=== PATIENT | male | born 1955 | race Caucasian/White ===

== ENCOUNTER 2019-10-30 13:18 | Outpatient (CLI) | payer MEDICAID, SELFPAY ==
--- NOTE | 2019-10-30 13:30 | USCV_ITS ---
To Knox Age: 64 Gender: M : 1955 Exam Date: 10/30/2019 13:34 Ordering Phys: Guillermina Khalil MD ([email or web address]) Technologist: [place] [facility] [place]: Peripheral vascular disease with claudication RIGHT LEFT Brachial 159.00 mmHg Brachial 140.00 mmHg Pressure (mmHg) Waveform Pressure (mmHg) Waveform 80.00 [employer] 140.00 88.00 DPA 129.00 0.55 Ankle/Brachial Index 0.88 0.44 Post-Exercise Ankle Brachial Index 0.83 52.00 Pre-Exercise Toe Pressure 90.00 0.33 Pre-Exercise Toe/Brachial Index 0.57 FINDINGS Diminished resting ABIs bilaterally Significantly diminished post exercise SUZANNE on the right side No significant change in the post exercise SUZANNE on the left side Severely diminished resting TBI on the right side Mildly diminished resting TBI on the left side CONCLUSIONS 1. Features of severe obstructive arterial disease on the right side 2. Possibly mild peripheral artery disease on the left side Dr Luca Martin MD FAC (Electronically Signed) Final Date: 30 October 2019 18:04 S
== END 2019-10-30 13:19 | disposition home or self-care (01) ==
LOC: RAD 13:25
PROVIDERS: Visit Provider Internal Medicine Cardiovascular Disease
DX: I73.9 Peripheral vascular disease, unspecified (principal)
CPT/HCPCS: 93922

== ENCOUNTER 2019-11-17 10:06 | Outpatient (CLI) | payer MEDICAID, SELFPAY ==
--- NOTE | 2019-11-17 11:00 | CTR_ITS ---
PROCEDURE INFORMATION: Exam: CTA Angiogram of the Abdominal Aorta and Bilateral Lower Extremities (Run-off) With IV Contrast Exam date and time: 11/17/2019 10:15 AM Age: 64 years old Clinical indication: Condition or disease; Other: Periperal artery disease TECHNIQUE: Imaging protocol: CT angiogram of the abdominal aorta, pelvis and bilateral lower extremities with IV iodinated contrast. 3D rendering: MIP and/or 3D reconstructed images were created by the technologist. Total DLP: 1211.69 mGy-cm Radiation optimization: All CT scans at this facility use at least one of these dose optimization techniques: automated exposure control; mA and/or kV adjustment per patient size (includes targeted exams where dose is matched to clinical indication); or iterative reconstruction. Contrast material: VISIPAQUE; Contrast volume: 95 ml; Contrast route: IV; COMPARISON: CT abdomen pelvis wo con [id number] 02/15/2019 1:59 AM FINDINGS: Aorta: The distal thoracic aorta measures 2.8 cm unchanged since the prior exam. Moderate noncalcified plaque/thrombus is noted. Severe atherosclerotic changes are noted in the distal abdominal aorta. Just distal to the renal arteries, there is marked irregularity of the lumen with extensive plaque formation some of which may reflect ulcerated plaque image 54. There is aneurysmal dilatation of the distal abdominal aorta measuring 3.2 by 3.0 cm increased since the prior exam where it measured 2.9 x 3.0 cm. There is no dissection. Celiac trunk and mesenteric arteries: There is mild narrowing of the origin of the celiac artery. The vessel is ectatic but there is no critical stenosis. There is mild narrowing of the origin of the superior mesenteric artery but no critical stenosis. Renal arteries: Mild narrowing of the origin of both renal arteries is noted with mild calcified and soft tissue density plaque but no critical stenosis bilaterally. Right iliac arteries: There is occlusion of the origin of the right common iliac artery at the bifurcation. Reconstitution of the vessel is noted at approximately the bifurcation into the internal and external iliac arteries. Approximately 50% narrowing of the right common iliac artery is noted due to soft tissue and calcific plaque Right femoral/popliteal arteries: No occlusion or significant stenosis. Right infrapopliteal arteries: No occlusion or significant stenosis. Left iliac arteries: There is approximately 50% stenosis of the origin of the left common iliac artery due to soft tissue density and calcific plaque. This is a short segment of narrowing measuring only 3 mm series 201, image 30. Approximately 25% narrowing of the distal left common iliac artery is noted series 3, image 124 due to posterior calcific and soft tissue density plaque. Approximately 25% narrowing of the left external iliac artery is noted throughout its course due to extensive calcific and soft tissue density plaque. Left femoral/popliteal arteries: No occlusion or significant stenosis. Left infrapopliteal arteries: No occlusion or significant stenosis. Mediastinum: A small hiatal hernia is present. Liver: No mass. Gallbladder and bile ducts: Unremarkable. No calcified stones. No ductal dilation. Pancreas: Unremarkable. No mass. No ductal dilation. Spleen: Normal. No splenomegaly. Adrenals: Normal. No mass. Kidneys and ureters: Bilateral renal cortical cysts are noted. The largest is in the midpole left kidney measuring three point 9 cm in size. Just posterior to this cyst on series 3, image 45 is a 2.1 cm indeterminate lesion concerning for an enhancing/solid mass left kidney the previously measured 1.7 cm in size. This lesion has indeterminate Hounsfield unit measurements of 59 Hounsfield unit. There is no hydronephrosis or nephrolithiasis. Stomach and bowel: Moderate diverticulosis is noted. No diverticulitis. No bowel thickening or inflammatory changes. Appendix: A normal appendix is identified. Bladder: There is nonspecific bladder wall thickening. This may be related to incomplete distention. Reproductive: The prostate demonstrates moderate nonspecific enlargement. The seminal vesicles are normal. The prostate demonstrates nonspecific parenchymal calcifications. There is a penile implant with a reservoir in the right lower quadrant. Intraperitoneal space: Unremarkable. No free air. No significant fluid collection. Lymph nodes: No lymphadenopathy. Bones/joints: Multiple probable cysts are noted on the right. Many of the cortical hypodensities are too small to characterize but the largest is in the midpole left kidney measuring 1.5 cm in size. Moderate degenerative changes are noted in the spine. Soft tissues: Bilateral small fat filled inguinal hernias are noted. CT/CT angio abd aorta runof [id number] IMPRESSION: 1. Complete occlusion of the right common iliac artery at its origin with reconstitution at the origin of the internal and external iliac arteries. 2. 50% narrowing of the origin of the left common iliac artery. Approximately 50% narrowing of both external iliac arteries. 3. Enlarging distal abdominal aortic aneurysm compared to the prior exam. Marked noncalcified plaque and irregularity of the lumen of the abdominal aorta is noted concerning for ulcerated plaque. No dissection or leak. 4. Enlarging enhancing lesion midpole left kidney concerning for incidental renal cell carcinoma. Bilateral renal cysts are noted. Recommend MR without and with contrast or CT without and with contrast. MR is preferred for masses under 1.5 cm. Radiation Dose CTDIVOL = (mGy): DLP = 1211.69 (mGy-cm)
[2019-11-17 11:04] LABS: Blood Urea Nitrogen 21 mg/dL (8-23); Glomerular Filtration Rate 38.2 mL/min (90-130)
[2019-11-17] MEDS: iodixanol 320 mg/mL 100mL Btl IV (11:53)
== END 2019-11-17 10:07 | disposition home or self-care (01) ==
LOC: RAD 10:07
PROVIDERS: Visit Provider Internal Medicine Cardiovascular Disease
DX: I74.5 Embolism and thrombosis of iliac artery (principal); I71.4 Abdominal aortic aneurysm, without rupture; I73.9 Peripheral vascular disease, unspecified; N28.9 Disorder of kidney and ureter, unspecified; N28.1 Cyst of kidney, acquired
CPT/HCPCS: 36415; 75635; 82565; 84520

== ENCOUNTER → 2022-12-04 12:47 | Outpatient (BNVA) | payer MEDICARE, MEDICAID, SELFPAY | PROVIDERS: Visit Provider Internal Medicine Cardiovascular Disease | DX: I25.10 Atherosclerotic heart disease of native coronary artery without angina pectoris (principal); I11.0 Hypertensive heart disease with heart failure; I50.42 Chronic combined systolic (congestive) and diastolic (congestive) heart failure; Z95.0 Presence of cardiac pacemaker; E11.9 Type 2 diabetes mellitus without complications; Z79.84 Long term (current) use of oral hypoglycemic drugs; Z79.82 Long term (current) use of aspirin; F17.210 Nicotine dependence, cigarettes, uncomplicated | CPT/HCPCS: 93005; 93288; 99204 ==

== ENCOUNTER → 2023-06-04 13:45 | Outpatient (BNVA) | payer MEDICARE, MEDICAID, SELFPAY | PROVIDERS: Visit Provider Internal Medicine Cardiovascular Disease | DX: I25.10 Atherosclerotic heart disease of native coronary artery without angina pectoris (principal); I11.0 Hypertensive heart disease with heart failure; I50.42 Chronic combined systolic (congestive) and diastolic (congestive) heart failure; Z95.0 Presence of cardiac pacemaker; F17.210 Nicotine dependence, cigarettes, uncomplicated | CPT/HCPCS: 99214 ==

== ENCOUNTER → 2024-01-01 13:41 | Outpatient (BNVA) | payer MEDICARE, MEDICAID, SELFPAY | PROVIDERS: Visit Provider Internal Medicine Cardiovascular Disease | DX: I11.0 Hypertensive heart disease with heart failure (principal); I50.42 Chronic combined systolic (congestive) and diastolic (congestive) heart failure; I25.10 Atherosclerotic heart disease of native coronary artery without angina pectoris; Z95.0 Presence of cardiac pacemaker; E11.9 Type 2 diabetes mellitus without complications; F17.210 Nicotine dependence, cigarettes, uncomplicated; Z79.84 Long term (current) use of oral hypoglycemic drugs | CPT/HCPCS: 99214 ==

== ENCOUNTER → 2024-01-15 14:07 | Outpatient (BNVA) | payer MEDICARE, MEDICAID, SELFPAY | PROVIDERS: Visit Provider Podiatrist Foot & Ankle Surgery | DX: I73.9 Peripheral vascular disease, unspecified (principal); B35.1 Tinea unguium; E11.69 Type 2 diabetes mellitus with other specified complication | CPT/HCPCS: 11721; 99204 ==

== ENCOUNTER → 2024-02-26 14:02 | Outpatient (BNVA) | payer MEDICARE, SELFPAY | PROVIDERS: Visit Provider Podiatrist Foot & Ankle Surgery | DX: R09.89 Other specified symptoms and signs involving the circulatory and respiratory systems (principal); I73.9 Peripheral vascular disease, unspecified; B35.1 Tinea unguium; E11.9 Type 2 diabetes mellitus without complications | CPT/HCPCS: 99213 ==

== ENCOUNTER 2024-02-29 14:02 | Outpatient (CLI) | payer MEDICARE, SELFPAY ==
--- NOTE | 2024-02-29 14:30 | CTR_ITS ---
PROCEDURE INFORMATION: Exam: CTA Abdominal Aorta and Bilateral Lower Extremities (Run-off) With Contrast Exam date and time: 02/29/2024 2:50 PM Age: 69 years old Clinical indication: Discoloration or erythema and other: Toes are turning purple; Bilateral; Patient HX: Toes are turning purple, states they have been for several years. HX of hepatitis; Treatment in 1974 TECHNIQUE: Imaging protocol: Computed tomographic angiography of the of the abdominal aorta, pelvis and bilateral lower extremities with contrast. 3D rendering (Not supervised by radiologist): MIP and/or 3D reconstructed images were created by the technologist. Radiation optimization: All CT scans at this facility use at least one of these dose optimization techniques: automated exposure control; mA and/or kV adjustment per patient size (includes targeted exams where dose is matched to clinical indication); or iterative reconstruction. Contrast material: OMNI 350; Contrast volume: 95 ml; Contrast route: INTRAVENOUS (IV); COMPARISON: CT angio abd aorta runof [id number] 11/17/2019 12:01 PM RADIATION DOSE METRICS: Total DLP (mGy-cm): 1137.74 FINDINGS: Tubes, catheters and devices: Penile prostheses with no complications to the right perivesical reservoir, scrotal pump, or penile shafts. Aorta: Severe atherosclerosis of the abdominal aorta with multiple ulcerated plaques. No penetrating atherosclerotic ulcers are present. Large atheromatous plaques are present throughout the aorta, many which are exophytic in morphology and measuring up to 9 mm in the descending thoracic aorta. At least 50% luminal stenosis of the infrarenal abdominal aorta due to large atherosclerotic plaques. Diffuse fusiform aneurysmal dilation of the infrarenal abdominal aorta, measuring up to 49 mm in greatest diameter. Celiac trunk and mesenteric arteries: Celiac artery is patent with mild ectasia of the distal segment measuring 10 mm. Mild stenosis at the takeoff of the SMA due to atherosclerotic plaque. Moderate atherosclerotic plaque at the proximal SMA without significant stenosis. Remainder of the SMA is patent. SIOBHAN is not confidently seen, presumed to be chronically occluded. Renal arteries: Right single renal artery is patent with mild diffuse atherosclerotic plaque and no significant stenosis. Mild stenosis at the takeoff of the left renal artery due to atherosclerotic plaque. Left renal artery is otherwise patent and has a proximal dual bifurcation. Right iliac arteries: Complete occlusion of the right common iliac artery with flow reconstitution at the external/internal iliac bifurcation. Severe stenosis of the proximal right external iliac artery due to atherosclerotic plaque. Moderate diffuse stenosis of the right external iliac artery, due to severe atherosclerotic calcified and noncalcified plaque. [id number]-[id number] multilevel stenosis of the right internal iliac artery due to atherosclerotic plaque. Right femoral/popliteal arteries: Mild stenosis of the proximal and mid right common femoral artery due to atherosclerotic plaque. Severe stenosis to the distal right common femoral artery (greater than 70%) due to atherosclerotic plaque. Mild (less than 50%) multi segmental stenosis of the right popliteal artery due to atherosclerosis. Right infrapopliteal arteries: Right anterior tibial artery is patent. Right posterior tibial artery is patent. Gradual decrease in flow to the distal right peroneal artery, favoring inflow disease. Right dorsalis pedis artery is patent. Right plantar artery is patent. Left iliac arteries: Severe stenosis (90% or more) at the takeoff of the left common iliac artery and moderate stenosis (50-69%) at the distal segments. Moderate (50-69%) stenosis at the proximal left external iliac artery. 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 Left femoral/popliteal arteries: Moderate (50-69%) stenosis at the proximal left superficial femoral artery. No significant stenosis or occlusion to the left common femoral artery. Occluded distal left superficial femoral artery with reconstitution of flow at the more distal segments. No significant stenosis or occlusion to the left popliteal artery. Left infrapopliteal arteries: Patent left anterior tibial artery. Patent left posterior tibial artery. Multi segmental occlusion and flow reconstitution throughout the left peroneal artery. Left dorsalis pedis artery is patent. Left plantar artery is patent. Lungs: Lung bases are clear. Liver: There is a diffuse decrease in hepatic parenchymal density, consistent with fatty infiltration. The liver is otherwise unremarkable. Gallbladder and bile ducts: The gallbladder is contracted. Multiple calcified gallstones are present. There is no evidence of biliary ductal dilation. Pancreas: Unremarkable. No mass. No ductal dilation. Spleen: Normal. No splenomegaly. Adrenal glands: There is diffuse bilateral adrenal enlargement, nonspecific but most likely related to acute illness or senile in etiology. Kidneys and ureters: There are multiple simple right renal cysts, as large as 22 mm. Subcentimeter right renal hypodense lesions are too small to characterize but most probably benign representing cysts. There are multiple simple left renal cysts, as large as 42 mm. Subcentimeter left renal hypodense lesions are too small to characterize but most probably benign representing cysts. The kidneys are otherwise unremarkable. The ureters are normal. Stomach and bowel: No bowel obstruction or significant bowel wall thickening. There is excessive colonic stool content. Appendix: Appendix is not confidently visualized on this examination, however there are no significant inflammatory changes to the right lower quadrant. Urinary bladder: Mild circumferential urinary bladder wall thickening. Reproductive: The prostate demonstrates marked nonspecific enlargement. The seminal vesicles are normal. Intraperitoneal space: Unremarkable. No free air. No significant fluid collection. Lymph nodes: No lymphadenopathy. Bones/joints: Moderate multilevel degenerative changes of the spine, as manifested by multilevel anterior osteophytes and multilevel decrease in intervertebral disc space. No acute fracture, dislocation, or aggressive osseous lesion. Soft tissues: There is a nonobstructing right inguinal hernia. There is a nonobstructing left inguinal hernia. No acute body wall soft tissue findings. CT/CT angio abd aorta runof [id number] IMPRESSION: 1. At least 50% luminal stenosis of the infrarenal abdominal aorta due to large atherosclerotic plaques. 2. Diffuse fusiform aneurysmal dilation of the infrarenal abdominal aorta, measuring up to 49 mm in greatest diameter. 3. SIOBHAN is not confidently seen, presumed to be chronically occluded. 4. Complete occlusion of the right common iliac artery with flow reconstitution at the external/internal iliac bifurcation. 5. Severe stenosis of the proximal right external iliac artery due to atherosclerotic plaque. 6. Moderate diffuse stenosis of the right external iliac artery, due to severe atherosclerotic calcified and noncalcified plaque. 7. Glrm-lh-[id number] multilevel stenosis of the right internal iliac artery due to atherosclerotic plaque. 8. Severe stenosis to the distal right common femoral artery (greater than 70%) due to atherosclerotic plaque. 9. Severe stenosis (90% or more) at the takeoff of the left common iliac artery and moderate stenosis (50-69%) at the distal segments. 10. Moderate (50-69%) stenosis at the proximal left external iliac artery. 11. Moderate (50-69%) stenosis at the proximal left superficial femoral artery. 12. Occluded distal left superficial femoral artery with reconstitution of flow at the more distal segments. 13. Mild stenosis at the takeoff of the SMA due to atherosclerotic plaque. 14. Mild stenosis at the takeoff of the left renal artery due to atherosclerotic plaque. 15. Mild stenosis of the proximal and mid right common femoral artery due to atherosclerotic plaque. 16. Mild (less than 50%) multi segmental stenosis of the right popliteal artery due to atherosclerosis. 17. Gradual decrease in flow to the distal right peroneal artery, favoring inflow disease. 18. 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 19. Multi segmental occlusion and flow reconstitution throughout the left peroneal artery. 20. Hepatic steatosis. 21. Cholelithiasis. 22. Urinary bladder findings are likely related to sequela of chronic urinary retention/cystitis from underlying prostatomegaly. 23. Incidental findings as above.
[2024-02-29 14:46] LABS: Blood Urea Nitrogen 31 mg/dL (8-23); Glomerular Filtration Rate 33.3 mL/min (90-130)
[2024-02-29] MEDS: iohexol 350 mg/mL 100 mL Btl IV (14:54)
== END 2024-02-29 14:03 | disposition home or self-care (01) ==
LOC: RAD 14:10
PROVIDERS: Visit Provider Podiatrist Foot & Ankle Surgery
DX: R09.89 Other specified symptoms and signs involving the circulatory and respiratory systems (principal); I70.8 Atherosclerosis of other arteries; I70.203 Unspecified atherosclerosis of native arteries of extremities, bilateral legs; K76.0 Fatty (change of) liver, not elsewhere classified; K80.20 Calculus of gallbladder without cholecystitis without obstruction
CPT/HCPCS: 75635; 82565; 84520; Q9967

== ENCOUNTER → 2024-03-18 13:38 | Outpatient (BNVA) | payer MEDICARE, SELFPAY | PROVIDERS: Visit Provider Podiatrist Foot & Ankle Surgery | DX: I73.9 Peripheral vascular disease, unspecified (principal); B35.1 Tinea unguium; E11.9 Type 2 diabetes mellitus without complications | CPT/HCPCS: 11721 ==

== ENCOUNTER → 2024-04-16 13:30 | Outpatient (BNVA) | payer MEDICARE, SELFPAY | PROVIDERS: Visit Provider Podiatrist Foot & Ankle Surgery | DX: I73.9 Peripheral vascular disease, unspecified (principal); B35.1 Tinea unguium; E11.9 Type 2 diabetes mellitus without complications | CPT/HCPCS: 99213 ==

== ENCOUNTER → 2024-05-27 13:15 | Outpatient (BNVA) | payer MEDICARE, SELFPAY | PROVIDERS: PCP Family Medicine; Visit Provider Podiatrist Foot & Ankle Surgery | DX: E11.9 Type 2 diabetes mellitus without complications (principal); I73.9 Peripheral vascular disease, unspecified | CPT/HCPCS: 99213 ==

== ENCOUNTER → 2024-06-17 15:12 | Outpatient (BNVA) | payer MEDICARE, SELFPAY | PROVIDERS: PCP Family Medicine; Visit Provider Podiatrist Foot & Ankle Surgery | DX: E11.9 Type 2 diabetes mellitus without complications (principal); I70.229 Atherosclerosis of native arteries of extremities with rest pain, unspecified extremity | CPT/HCPCS: 99213 ==

== ENCOUNTER → 2024-07-08 15:30 | Outpatient (BNVA) | payer MEDICARE, SELFPAY | PROVIDERS: PCP Family Medicine; Visit Provider Podiatrist Foot & Ankle Surgery | DX: Z51.89 Encounter for other specified aftercare (principal); E11.9 Type 2 diabetes mellitus without complications; I70.221 Atherosclerosis of native arteries of extremities with rest pain, right leg | CPT/HCPCS: 99213 ==